=== PATIENT | female | born 1980 | race Caucasian/White ===

== ENCOUNTER 2019-05-08 13:36 | Inpatient (IN) | payer SELFPAY ==
[~2019-05-08] VITALS: Ht 152.4 cm; Wt 91.4 kg
[2019-05-08] MEDS ORDERED: M.V.I. IV [ADULT] 10 ML VIAL IV ONE ×2 (13:54→18:16)
[2019-05-08] MEDS ORDERED: DIAZEPAM 5 MG TABLET ONE (13:54)
[2019-05-08] MEDS ORDERED: THIAMINE HCL 100 MG/ML 2ML VIAL ONE ×2 (13:54→18:16)
[2019-05-08] MEDS ORDERED: FOLIC ACID 5 MG/ML 10 ML VIAL ONE ×2 (13:56→18:16)
[2019-05-08] MEDS ORDERED: LORAZEPAM 2 MG/ML 1 ML VIAL ONE (13:57)
[2019-05-08] MEDS ORDERED: SODIUM CHLORIDE 0.9% 1000ML 1,000 ML IV ONE (13:58)
[2019-05-08 13:59] LABS: BASOPHILS % (AUTO) 0.4 % (0.0-5.0); EOSINOPHILS % (AUTO) 0.2 % (0.0-8.0); HEMATOCRIT 41.3 % (36-48); LYMPHOCYTES % (AUTO) 13.2 % (21.0-51.0); MEAN CORPUSCULAR HEMOGLOBIN 32.7 pg (27.0-33.0); MEAN CORPUSCULAR HGB CONC 33.6 g/dL (32.0-36.0); MEAN CORPUSCULAR VOLUME 97.2 fL (79-99); MONOCYTES % (AUTO) 9.9 % (3.0-13.0); NEUTROPHILS % (AUTO) 76.3 % (40.0-77.0); PLATELET COUNT (AUTO) 317 K/uL (130-400); RED BLOOD CELL COUNT(AUTO) 4.25 MIL/uL (4.00-5.50); RED CELL DISTRIBUTION WIDTH 16.8 % (11.0-15.5); WHITE BLOOD COUNT (AUTO) 9.4 K/uL (4.8-10.8)
[2019-05-08 14:08] LABS: CARBON DIOXIDE 25 mmol/L (21-32); CHLORIDE 99 mmol/L (101-111); GLUCOSE,RANDOM 116 mg/dL (70-105); POTASSIUM 3.6 mmol/L (3.5-5.1); SODIUM SERUM 137 mmol/L (136-145); UREA NITROGEN, BLOOD 16 mg/dL (7-18)
[2019-05-08 14:09] LABS: CREATININE 0.9 mg/dL (0.5-1.5); GLOMERULAR FILTR. RATE CALC 74 mL/min (>60)
[2019-05-08 14:13] LABS: ALANINE AMINOTRANSFERASE 57 U/L (12-78); ALBUMIN 3.9 g/dL (3.5-5.0); ALCOHOL, BLOOD < 3 mg/dL (0-10); ASPARTATE AMINOTRANSFERASE 68 U/L (10-37); BILIRUBIN,TOTAL 1.9 mg/dL (0.2-1.0); TOTAL PROTEIN, SERUM 7.3 g/dL (6.0-8.3)
[2019-05-08 14:38] LABS: INR 0.98 (0.85-1.15); PARTIAL THROMBOPLASTIN TIME 26.6 SEC (26.3-35.5); PROTHROMBIN TIME 10.3 SEC (9.6-11.6)
[2019-05-08] MEDS ORDERED: ONDANSETRON HCL 4 MG/2 ML VIAL ONE ×2 (15:07→23:46)
[2019-05-08 15:11] LABS: APPEARANCE,URINE SL CLOUDY (CLEAR); BILIRUBIN,URINE MODERATE (NEGATIVE); COLOR,URINE ORANGE (YELLOW); GLUCOSE, URINE (UA) NEGATIVE (NEGATIVE); KETONES,URINE >=80 mg/dL (NEGATIVE); LEUKOCYTE ESTERASE ,URINE NEGATIVE (NEGATIVE); NITRATE,URINE POSITIVE (NEGATIVE); OCCULT BLOOD,URINE MODERATE (NEGATIVE); PROTEIN,URINE 100 mg/dL (NEGATIVE)
[2019-05-08 15:21] LABS: AMPHET/METH SCREEN,URINE NEGATIVE (NEGATIVE); BARBITURATE SCREEN, URINE NEGATIVE (NEGATIVE); BENZODIAZEPINES SCREEN,URINE POSITIVE (NEGATIVE); CANNABINOID SCREEN,URINE NEGATIVE (NEGATIVE); COCAINE SCREEN,URINE POSITIVE (NEGATIVE); OPIATE SCREEN,URINE NEGATIVE (NEGATIVE); PHENCYCLIDINE SCREEN,URINE NEGATIVE (NEGATIVE)
[2019-05-08 15:22] LABS: HCG,QUAL RESULT NEGATIVE (NEGATIVE)
[2019-05-08 15:43] LABS: BACTERIA,URINE Few /HPF (None Seen); WBC,URINE 0-1 /HPF (0-1)
[2019-05-08 15:44] LABS: MUCUS,URINE Moderate LPF (None Seen); SQUAMOUS EPITHELIAL CELL,UR Few /HPF (0-2)
[2019-05-08] MEDS: SODIUM CHLORIDE 0.9% 1000ML 1,000 ML IV SCH (17:57)
[2019-05-08] MEDS ORDERED: HYDRALAZINE HCL 20 MG/ML VIAL IV PRN (18:00)
[2019-05-08] MEDS: THIAMINE HCL 100 MG, FOLIC ACID 1 MG, M.V.I. IV [ADULT] 10 ML in SODIUM CHLORIDE 0.9% 1... IV SCH (18:00)
[2019-05-08] MEDS ORDERED: ACETAMINOPHEN 325 MG TAB PO PRN ×2 (18:00)
[2019-05-08] MEDS ORDERED: ONDANSETRON HCL 4 MG/2 ML VIAL IV PRN (18:00)
[2019-05-08] MEDS ORDERED: PHARMACY COMMUNICATION MISC PRN (18:00)
[2019-05-08] MEDS ORDERED: LORAZEPAM 2 MG/ML 1 ML VIAL IVP PRN (18:00)
[2019-05-08] MEDS ORDERED: LACTULOSE 20 GM/30 ML UDCUP PO PRN (18:00)
[2019-05-08] MEDS ORDERED: SODIUM CHLORIDE 0.9% 1000ML 2,000 ML IV ONE (18:17)
[2019-05-08] MEDS: FAMOTIDINE/PF 20 MG/2 ML VIAL IV SCH (21:00)
[2019-05-08] MEDS: METOPROLOL TARTRATE 25 MG TAB PO SCH (21:00)
[2019-05-09] VITALS (7 sets, daily range): BP systolic 114–160; BP diastolic 66–94
[2019-05-09] MEDS: SODIUM CHLORIDE 0.9% 1000ML 1,000 ML IV SCH ×3 (01:57→14:25)
[2019-05-09] MEDS: FAMOTIDINE/PF 20 MG/2 ML VIAL IV SCH ×2 (07:17→20:42)
[2019-05-09] MEDS: METOPROLOL TARTRATE 25 MG TAB PO SCH ×2 (07:18→20:42)
--- NOTE | 2019-05-09 07:30 | NUR ---
ASSESSMENT PT IS AAOX4 DENIES CP DENIES SOB DENIES NV NO COMPLAINTS. TOLERATED BREAKFAST. AM MEDS GIVEN. CALL LIGHT WITHIN REACH.
[2019-05-09] MEDS: NICOTINE 21 MG/ 24 HR PATCH TD SCH (08:32)
[2019-05-09] MEDS: ENOXAPARIN SODIUM 40 MG/0.4 ML SYRINGE SQ SCH (08:33)
[2019-05-09] MEDS ORDERED: LEVO100T12 PO (08:38)
[2019-05-09] MEDS: CHLORDIAZEPOXIDE HCL 25 MG CAP PO PRN ×3 (10:15→17:59)
--- NOTE | 2019-05-09 12:40 | NUR ---
STATUS RESTING IN BED, NO COMPLAINTS DENIES PAIN DENIES ANXIETY, LIBRIUM PO GIVEN EARLIER. PATIENT IS CALM. CALL LIGHT WITHIN REACH.
--- NOTE | 2019-05-09 15:19 | NUR ---
DC PLAN VISITED WITH PATIENT. PATIENT LIVES WITH SPOUSE. INDEPENDENT ABLE TO PERFORM ADL'S. PATIENT SAYS THAT COCAINE WAS FROM LAST MONTH NOT SURE WHY IT CAME UP. SHE HAS BEEN TRYING TO STOP. GAVE LOW INCOME CLINIC INFO. GAVE INFO ON DRUG STOPPING AND AA MEETING INFO. SAYS THAT SHE WILL FOLLOW UP ON DC. Addendum: 05/09/19 at 1520 by LUIS ARMANDO GUVEARA RN CM Amended: Links added.
[2019-05-09] MEDS: THIAMINE HCL 100 MG, FOLIC ACID 1 MG, M.V.I. IV [ADULT] 10 ML in SODIUM CHLORIDE 0.9% 1... IV SCH (17:01)
[2019-05-10 03:56] VITALS: BP 121/85
[2019-05-10] MEDS: SODIUM CHLORIDE 0.9% 1000ML 1,000 ML IV SCH (04:18)
[2019-05-10 04:49] LABS: HEMATOCRIT 35.4 % (36-48); MEAN CORPUSCULAR HEMOGLOBIN 33.3 pg (27.0-33.0); MEAN CORPUSCULAR HGB CONC 33.8 g/dL (32.0-36.0); MEAN CORPUSCULAR VOLUME 98.5 fL (79-99); PLATELET COUNT (AUTO) 211 K/uL (130-400); RED BLOOD CELL COUNT(AUTO) 3.59 MIL/uL (4.00-5.50); RED CELL DISTRIBUTION WIDTH 16.4 % (11.0-15.5); WHITE BLOOD COUNT (AUTO) 6.4 K/uL (4.8-10.8)
[2019-05-10 05:01] LABS: INR 0.95 (0.85-1.15); PARTIAL THROMBOPLASTIN TIME 26.3 SEC (26.3-35.5)
[2019-05-10 05:04] LABS: BILIRUBIN,TOTAL 0.9 mg/dL (0.2-1.0); CREATININE 1.5 mg/dL (0.5-1.5); POTASSIUM 3.1 mmol/L (3.5-5.1); TOTAL PROTEIN, SERUM 5.5 g/dL (6.0-8.3)
[2019-05-10 07:42] VITALS: BP 112/77
--- NOTE | 2019-05-10 08:15 | NUR ---
AM ASSESSMENT PT LAYING IN BED, WATCHING TV. A/O X 3. NO SOB. NO DISTRESS NOTED. DENIES CHEST PAIN OR DISCOMFORT. DENIES PALPITATIONS. TELE: SR 60s. DENIES LIGHT HEADEDNESS. DENIES N/V AND/OR DIARRHEA. STATES STOOL ARE "LOOSE BUT NOT WATERY." 0.9% NACL INFUSING @ 70 ML/HR. UP W/ASSISTANCE. INSTRUCTED TO CALL FOR ASSISTANCE. CALL ROMAN W/IN REACH.
[2019-05-10] MEDS: METOPROLOL TARTRATE 25 MG TAB PO SCH ×2 (08:20→20:17)
[2019-05-10] MEDS: NICOTINE 21 MG/ 24 HR PATCH TD SCH (08:21)
[2019-05-10] MEDS: ENOXAPARIN SODIUM 40 MG/0.4 ML SYRINGE SQ SCH (08:21)
[2019-05-10] MEDS: FAMOTIDINE 20MG TAB 20 MG TAB PO SCH (08:26)
[2019-05-10 11:51] VITALS: BP 120/76
[2019-05-10 15:28] VITALS: BP 122/82
[2019-05-10 19:37] VITALS: BP 118/73
[2019-05-10] MEDS: THIAMINE HCL 100 MG, FOLIC ACID 1 MG, M.V.I. IV [ADULT] 10 ML in SODIUM CHLORIDE 0.9% 1... IV SCH (20:25)
[2019-05-10] MEDS ORDERED: POTASSIUM CHLORIDE 20MEQ/100ML 100 ML IV PRN (20:45)
[2019-05-10] MEDS ORDERED: LIDOCAINE HCL-MPF 1% 2ML VIAL IVP PRN (20:45)
[2019-05-10 23:37] VITALS: BP 94/68
[2019-05-11] MEDS ORDERED: POTASSIUM CHLORIDE 20 MEQ ERTAB PO ONE (02:37)
--- NOTE | 2019-05-11 02:54 | NUR ---
AREA OPERATIONS MANAGER Rock came and notified pt K level 3.1 and she is getting P.O Potassium 1 tab and K 20 meq IVPB and he said okay to give
[2019-05-11] MEDS ORDERED: POTASSIUM CHLORIDE 20 MEQ ERTAB PO SCH (03:00)
[2019-05-11 03:35] VITALS: BP 122/83
[2019-05-11 06:17] LABS: HEMATOCRIT 37.9 % (36-48); MEAN CORPUSCULAR HEMOGLOBIN 33.7 pg (27.0-33.0); MEAN CORPUSCULAR VOLUME 99.1 fL (79-99); PLATELET COUNT (AUTO) 198 K/uL (130-400); RED BLOOD CELL COUNT(AUTO) 3.82 MIL/uL (4.00-5.50); RED CELL DISTRIBUTION WIDTH 16.2 % (11.0-15.5); WHITE BLOOD COUNT (AUTO) 6.9 K/uL (4.8-10.8)
[2019-05-11 06:28] LABS: CREATININE 0.8 mg/dL (0.5-1.5); MAGNESIUM 1.5 mg/dL (1.80-2.40); PHOSPHORUS 3.4 mg/dL (2.5-4.9); POTASSIUM 3.6 mmol/L (3.5-5.1)
[2019-05-11] MEDS ORDERED: LEVOTHYROXINE 75 MCG TABLET PO SCH (06:30)
[2019-05-11] MEDS ORDERED: POTASSIUM CHLORIDE 20 MEQ ERTAB PO PRN (07:30)
[2019-05-11] MEDS ORDERED: POTASSIUM CHLORIDE 10% ELIXIR 20 MEQ/15 ML UDCUP PO PRN (07:30)
[2019-05-11] MEDS: METOPROLOL TARTRATE 25 MG TAB PO SCH (08:30)
[2019-05-11] MEDS: FAMOTIDINE 20MG TAB 20 MG TAB PO SCH (08:30)
--- NOTE | 2019-05-11 08:30 | NUR ---
AM ASSESSMENT PT LAYING IN BED, HOB ELEVATED 30 DEGREES, WATCHING TV. A/O X 3. NO SOB. NO DISTRESS NOTED. DENIES CHEST PAIN OR DISCOMFORT. DENIES PALPITATIONS. TELE: SR 80s. DENIES LIGHT HEADEDNESS. NO DIZZINESS. DENIES N/V. (+) LOOSE STOOLS. UP AD HAMLET. INSTRUCTED TO CALL FOR ASSISTANCE. CALL ROMAN W/IN REACH.
[2019-05-11] MEDS: NICOTINE 21 MG/ 24 HR PATCH TD SCH (08:31)
[2019-05-11] MEDS: ENOXAPARIN SODIUM 40 MG/0.4 ML SYRINGE SQ SCH (08:31)
[2019-05-11 09:15] VITALS: BP 132/99
[2019-05-11] MEDS ORDERED: METO25 PO (11:05)
[2019-05-11 11:15] VITALS: BP 119/72
--- NOTE | 2019-05-11 11:30 | NUR ---
DISCHARGE VERBAL & WRITTEN DISCHARGE INSTRUCTIONS REVIEWED & GIVEN TO PT. QUESTIONS ENCOURAGED & CLARIFIED. PROPER CARE & PREVENTION OF ALCOHOL WITHDRAWAL REVIEWED. NEW PRESCRIBED MEDICATIONS REVIEWED. PRESCRIPTION GIVEN TO PT;SIGNED COPY PLACED IN CHART. PT TO CONTINUED HOME MEDICATIONS. PT TO SEARCH FOR PCP AND F/U IN 1-2 WEE Addendum: 05/11/19 at 1154 by TRAY GRAHAM RN RN DISCHARGE @ 1130. INCOMPLETE SAVE. PT TO SEARCH FOR PCP AND F/U IN 1-2 WEEKS. TELE KATHY REMOVED. IN DISCONTINUED. PT TO GATHER PERSONAL BELONGINGS. WILL NOTIFY STAFF WHEN SPOUSE ARRIVES TO TAKE PT HOME.
--- NOTE | 2019-05-11 12:30 | NUR ---
DISCHARGE SPOUSE HERE TO TAKE PT HOME. PT TAKEN TO PRIVATE VEHICLE VIA WC BY Catie THORPE PCP. NO DISTRESS NOTED.
== END 2019-05-11 12:30 | disposition home or self-care (01) | DRG 641 ==
LOC: EDH 13:36 → EDHIP 13:37 → 2DH 05-09 01:52
PROVIDERS: ADMIT Internal Medicine; ATTEND Internal Medicine
DX: E87.6 Hypokalemia (principal); F10.231 Alcohol dependence with withdrawal delirium; E66.9 Obesity, unspecified; F17.210 Nicotine dependence, cigarettes, uncomplicated; E03.9 Hypothyroidism, unspecified; Y90.9 Presence of alcohol in blood, level not specified; Z68.35 Body mass index [BMI] 35.0-35.9, adult; Z91.19 Patient's noncompliance with other medical treatment and regimen; Z71.41 Alcohol abuse counseling and surveillance of alcoholic; Z71.6 Tobacco abuse counseling
CPT/HCPCS: 36415; 80048; 80053; 80305; 81001; 81025; 82140; 83735; 84100; 84443; 85025; 85027; 85610; 85730; 93005; G0378; G0480; J1650; J2060; J2405; J3411; J3480; J3490; J7030